=== PATIENT | female | born 1975 | race Caucasian/White ===

== ENCOUNTER → 2017-02-21 | Outpatient (CLI) | payer BC | LOC: MAMO 12:53 | DX: Z12.31 Encounter for screening mammogram for malignant neoplasm of breast (principal) | CPT/HCPCS: G0202 ==

== ENCOUNTER → 2020-08-25 | Outpatient (CLI) | payer BC | LOC: LAB 07:23 | DX: E78.5 Hyperlipidemia, unspecified (principal) | CPT/HCPCS: 80061 ==

== ENCOUNTER → 2021-04-13 | Outpatient (CLI) | payer BC ==
[2021-04-13 07:05] LABS: HEMOGLOBIN 13.7 gm/dl (12.3-15.3); RED BLOOD COUNT 4.38 M/UL (4.00-5.10); WHITE BLOOD COUNT 11.9 K/UL (4.5-11.0)
[2021-04-13 07:38] LABS: BUN/CREATININE RATIO 23 (0-10)
[2021-04-15 05:08] LABS: SARS COV-2 IGG AB Positive (Negative)
== END ==
LOC: LAB 06:50
PROVIDERS: Family Medicine
DX: E55.9 Vitamin D deficiency, unspecified (principal); E53.8 Deficiency of other specified B group vitamins; E78.5 Hyperlipidemia, unspecified; I10 Essential (primary) hypertension; Z20.822 Contact with and (suspected) exposure to COVID-19
CPT/HCPCS: 80053; 80061; 82607; 84443; 85027; 86769

== ENCOUNTER → 2022-01-19 | Outpatient (CLI) | payer BC | LOC: LAB 14:23 | DX: R30.0 Dysuria (principal) | CPT/HCPCS: 81001; 87086 ==